=== PATIENT | female | born 1975 | race Caucasian/White ===

== ENCOUNTER 2018-12-10 17:11 | Emergency (ER) | payer SELFPAY ==
[~2018-12-10] VITALS: Ht 157.5 cm; Wt 86.2 kg
[2018-12-10 17:16] VITALS: BP 151/80
[2018-12-10] MEDS ORDERED: HYDROcodone/APAP 5/325MG 1 TAB TABLET PO ONE (18:00)
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
[2018-12-10] MEDS ORDERED: HYDR-3164 PO (18:16)
== END 2018-12-10 18:33 | disposition home or self-care (01) ==
LOC: ER 17:11
DX: M54.41 Lumbago with sciatica, right side (principal); G89.29 Other chronic pain; F17.200 Nicotine dependence, unspecified, uncomplicated; Z90.89 Acquired absence of other organs; Z90.49 Acquired absence of other specified parts of digestive tract
CPT/HCPCS: 99283